=== PATIENT | female | born 1985 | race Caucasian/White ===

== ENCOUNTER 2024-07-24 00:52 | Emergency (ER) | payer OTHER, SELFPAY | END 2024-07-24 01:08 | LOC: EMR 00:52 | PROVIDERS: FAMILY PHYSICIAN Internal Medicine | DX: O26.893 Other specified pregnancy related conditions, third trimester (principal); O99.513 Diseases of the respiratory system complicating pregnancy, third trimester; Z3A.30 30 weeks gestation of pregnancy; R51.9 Headache, unspecified; R07.9 Chest pain, unspecified; J20.9 Acute bronchitis, unspecified; R03.0 Elevated blood-pressure reading, without diagnosis of hypertension | CPT/HCPCS: 99283; 93005 ==

== ENCOUNTER 2024-07-24 01:10 | Observation (INO) | payer OTHER, SELFPAY ==
[2024-07-24 01:13] VITALS: BMI 25.8
[2024-07-24 01:24] VITALS: BP 114/72
[2024-07-24] MEDS: TYLENOL 500 MG PO (01:52)
[2024-07-24] MEDS: LR 1000 IV (01:54)
[2024-07-24 02:08] LABS: Hematocrit 29.1 % (37.0-47.0); Hemoglobin 9.9 g/dL (12.0-16.0); Mean Corpuscular Hgb 31.1 pg (27.0-31.0); Mean Corpuscular Volume 91.5 fL (81.0-99.0); Platelet Count 369 10^3/uL (130-400); Red Blood Cell Count 3.18 10^6/uL (4.20-5.40); Red Cell Dist. Width 12.9 % (11.5-14.5); White Blood Cell Count 10.9 10^3/uL (4.8-10.8)
[2024-07-24 02:18] LABS: ALT (SGPT) 28 U/L (0-35); AST (SGOT) 27 U/L (14-36); Albumin 3.4 g/dl (3.5-5.0); Alkaline Phosphatase 106 U/L (38-126); Blood Urea Nitrogen 8 mg/dl (7-17); Calcium 8.9 mg/dl (8.4-10.2); Carbon Dioxide 19 mmol/L (22-30); Chloride 108 mmol/L (98-107); Estimated Creatinine Clearance 99 ml/min; Glucose 100 mg/dl (70-99); Potassium 4.1 mmol/L (3.5-5.1); Sodium 138 mmol/L (135-145); Total Bilirubin 0.1 mg/dl (0.2-1.3); Total Protein 6.4 g/dl (6.3-8.2); eGFR > 60.00
[2024-07-24 02:48] LABS: Protein/creatinine Ratio 2.9; Urine Protein 16 mg/dl
[2024-07-24 04:58] LABS: Urine Albumin Negative (Neg - Trace); Urine Bilirubin Negative (Negative); Urine Character Clear (Clear); Urine Color Straw; Urine Glucose Negative (Negative); Urine Ketone Negative (Negative); Urine Leukocyte Negative (Negative); Urine Nitrite Negative (Negative); Urine Occult Blood Negative (Negative); Urine Specific Gravity 1.005 (<1.030); Urine Urobilinogen Negative (Neg - 1+)
== END 2024-07-24 03:31 | disposition home or self-care (01) ==
LOC: LDRP 01:10
PROVIDERS: ADMITTING PHYSICIAN Student in an Organized Health Care Education/Training Program; FAMILY PHYSICIAN Internal Medicine
DX: O26.893 Other specified pregnancy related conditions, third trimester (principal); R51.9 Headache, unspecified; R05.9 Cough, unspecified; R07.81 Pleurodynia; R03.0 Elevated blood-pressure reading, without diagnosis of hypertension; O09.523 Supervision of elderly multigravida, third trimester; Z3A.29 29 weeks gestation of pregnancy; O09.43 Supervision of pregnancy with grand multiparity, third trimester; R07.9 Chest pain, unspecified; G47.09 Other insomnia; Z91.041 Radiographic dye allergy status
CPT/HCPCS: 80053; 81003; 82570; 84156; 85027; G0378

== ENCOUNTER 2024-07-24 03:23 | Emergency (ER) | payer OTHER, SELFPAY ==
[2024-07-24 03:25] VITALS: BP 108/82
[2024-07-24 03:45] VITALS: BP 112/73
[2024-07-24 03:48] VITALS: BMI 27.0
[2024-07-24 04:00] VITALS: BP 114/75
--- NOTE | 2024-07-24 04:47 | ED.GENMED ---
History of Present Illness
<SRUTHI Calderon - Last Filed: 07/24/24 06:16>
General
Chief Complaint: Chest Problem
Source: patient
Time Seen by Provider: 07/24/24 04:45
Nursing documentation reviewed up to this point in time: agreed with
History of Present Illness
History of Present Illness:
Pt is a 39 yo F who is 30 weeks and presents to the ED for chest pain. At 00:53 patient presented to the ED for chest pain and headache. Pt had an EKG in ED which showed tachycardia, then patient was sent to OB floor. Pt is now back in the
ED at 5:00am for further evaluation of chest pain. Pt states that last week she had bronchitis and has been coughing more recently. She explains that the pain is located on her left anterior chest and is worse when she presses on it. Pt states that
the pain does not radiate. Pt states that she received Tylenol around 2:00am and states that she feel much better. Pt states that her cough has been improving. She reports that she still coughs at times and the pain is worse when she coughs. Pt
denies shortness of breath, dizziness.
Review of Systems
<SRUTHI Calderon - Last Filed: 07/24/24 06:16>
Review of Systems
Allergies reviewed?: Yes
Constitutional: Reports no symptoms
Respiratory: Reports cough
Cardiac: Reports chest pain
ABD/GI: Reports no symptoms
Skin: Reports no symptoms
Phy Exam
<SRUTHI Calderon - Last Filed: 07/24/24 06:16>
General Physical Exam
General Presentation: well appearing and no apparent distress
General age: appears stated age
General Skin: warm
General Habitus: normal
General Mental: alert
General Hydration: appears well hydrated
Cardiovascular Exam
Cardiovascular Exam: regular rate/rhythm and no edema
Pulmonary Exam
Pulmonary Exam: lungs clear, no respiratory distress and other (tenderness to palpation of left middle anterior chest wall )
Course
<ST YumikoPA - Last Filed: 07/24/24 06:16>
Orders/Labs/Results
Orders:
Orders
07/24/24 04:11
Add On- LAB Urgent
Comments:: urine in lab
Tests Added?: Urinalysis reflex to culture
07/24/24 05:23
CR Chest - 2 Views Urgent
Comment:
Reason For Exam: cough, left anterior lower CP w cough
Vital Signs
Initial and Last Documented VS:
Initial Vital Signs
Temp Pulse Resp BP Pulse Ox
97.4 F 106 24 108/82 100
07/24/24 03:25 07/24/24 03:25 07/24/24 03:25 07/24/24 03:25 07/24/24 03:25
Last Documented Vital Signs
Temp Pulse Resp BP Pulse Ox
97.9 F 101 18 118/77 98
07/24/24 03:47 07/24/24 05:03 07/24/24 05:03 07/24/24 06:08 07/24/24 06:10
<Lisa Martel DO - Last Filed: 07/24/24 07:31>
Orders/Labs/Results
Orders:
Orders
07/24/24 04:11
Add On- LAB Urgent
Comments:: urine in lab
Tests Added?: Urinalysis reflex to culture
07/24/24 05:23
CR Chest - 2 Views Urgent
Comment:
Reason For Exam: cough, left anterior lower CP w cough
Vital Signs
Initial and Last Documented VS:
Initial Vital Signs
Temp Pulse Resp BP Pulse Ox
97.4 F 106 24 108/82 100
07/24/24 03:25 07/24/24 03:25 07/24/24 03:25 07/24/24 03:25 07/24/24 03:25
Last Documented Vital Signs
Temp Pulse Resp BP Pulse Ox
97.9 F 101 18 118/77 98
07/24/24 03:47 07/24/24 05:03 07/24/24 05:03 07/24/24 06:08 07/24/24 06:10
<SRUTHI Calderon - Last Filed: 07/24/24 06:16>
MDM/Problems Addressed
Differential Diagnosis Includes:
Costochondritis
<SRUTHI Calderon - Last Filed: 07/24/24 06:16>
*Critical Care Note
Total Time (30-74mins, 75-104mins- exclusive of procedures): Not Applicable
<Lisa Martel DO - Last Filed: 07/24/24 07:31>
*Pulse Oximetry
Patient hypoxic: no
*EKG
Interpreted by ED Provider?: Yes
Comparison EKG: no comparison EKG present
Heart Rate: 106
Rate: tachycardiac
Rhythm: sinus
Hamilton: normal axis
Interval: normal interval
QRS Pattern: normal QRS
Ischemia: no ischemia
ED Attending Note
<SRUTHI Calderon - Last Filed: 07/24/24 06:16>
-
Portions of this chart may have been created with voice recognition software.� Occasional wrong word or��sound alike� substitutions may have occurred due to the inherent limitations of voice recognition software.
<Lisa Martel DO - Last Filed: 07/24/24 07:31>
ED Attending Note
Patient seen and examined by attending physician: Yes
I performed the substantive portion of visit, reviewed & personally made and approve the management plan that is documented in note by myself or PHILIP.: Yes
ED Attending Note:
This is a 39-year-old woman 7 para 5, currently 30 weeks . 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 Thus far uneventful , no complications.
She does however note URI symptoms that began over a week ago. Evaluated at urgent care Tuesday week ago, July 14 where she was diagnosed with bronchitis. COVID testing was negative. Several family members with similar URI symptoms and some
diagnosed with pneumonia. She was prescribed antibiotic which she did not take. URI has resolved. She does continue with mild intermittent dry cough and does note that she had significant cough throughout this past week with onset of left
anterior lower chest pain that is worse with cough, worse with deep breath. Left anterior lower chest pain at 1 point was radiating around to her left back but this has since resolved. She denies shortness of breath. She initially presented to
the ED with left anterior chest discomfort and also noted to have elevated blood pressure.
Initially presented to this ED and OB was notified.
EKG unremarkable, normal sinus rhythm, normal axis, no acute ST-T wave abnormalities. OB notified and patient was initially taken directly to labor and delivery floor for further evaluation. She was given Tylenol for pain with normalization of
blood pressure. Labs were unremarkable. Urinalysis showed minimally elevated protein and she was recommended to follow-up with her primary personal computer network analyst this week for recheck.
Prior to tonight she has had no episodes of elevated blood pressure.
Since receiving Tylenol she admits that left anterior lower chest discomfort is markedly improved. She continues to deny shortness of breath. No palpitations. No nausea nor vomiting. No flank pain. No dysuria and urgency and or hematuria.
GENERAL: 39-year-old woman appears her stated age, bright and alert, pleasant, appears in no acute distress.
EYE: pupils equal and reactive. anicteric
NECK: Supple, nontender, no meningismus, no significant adenopathy.
ENT: posterior pharynx is clear, oral mucosa is moist. TM clear b/l, nares patent.
CARDIAC: Regular rate and rhythm. no murmur. Moderate pinpoint tenderness left anterior intercostal region between ribs 5 and 6. Palpation seems to exactly reproduce patient's pain complaint. There is no crepitus nor palpable bony abnormality.
LUNGS: Clear breath sounds bilaterally, no acute respiratory distress, no wheezes/rales/rhonchi
ABDOMEN: Gravid, soft, nondistended, without focal tenderness, no r/g, no cvat. normoactive BS.
NEUROLOGICAL: Alert and oriented x3, no focal neuro deficits. Gait is steady.
SKIN: Warm and dry, normal color, skin intact. No rash.
MUSCULOSKELETAL: No C/C/E. peripheral pulses are full and equal b/l. No palpable tenderness.
PSYCH: Normal and appropriate interaction.
Patient presents with focal reproducible left anterior distal chest pain that is worse with cough, worse with deep breath but denies shortness of breath.
Recent URI a week and a half ago with significant coughing has significantly improved/near resolved. Previous COVID testing were negative.
I suspect intercostal muscle strain but must consider focal pneumonia, pleurisy, as patient is must also consider PE.
Blood pressure normal.
Nothing on exam to suggest preeclampsia.
We did discuss CT of the chest which patient declines. No prior history of thromboembolism and is reassuring that she has had no shortness of breath and on exam clearly has reproducible pinpoint intercostal tenderness to palpation.
Lungs are clear to auscultation but may have an occult pneumonia thus recommend chest x-ray which she is agreeable to go.
We did discuss that the only way to completely rule out PE is with CT scan which she continues to decline.
06:10
Delay in chest x-ray due to technical instructor off the floor for morning portables/ICU.
Patient elects to forego chest x-ray, requesting to go home and plans to follow-up with her PCP as well as COUNTERINTELLIGENCE AGENT.
Recommend she take Tylenol as needed for pain.
May also trial topical lidocaine patch, heating patch versus heating pad.
Strict return precautions discussed.
Discharge Plan
Departure
Patient Disposition: Home (Routine Discharge)
Date of Disposition: 07/24/24
Time of Disposition: 06:10
Patient with high blood pressure during this ER visit?: No
Condition: Good
Discharge Problem:
left anterior intercostal muscle strain, resolving bronchitis, 30 weeks gestation of
Instructions: Rib injury in adults, Chest Pain PCP Follow Up
Prescriptions:
No Action
No Current Medications
0
Referrals:
Nik Ribeiro MD [Family Provider] - Call in 1-3 days for appt
Activity Restrictions/Additional Instructions:
Follow-up with your personal computer network analyst this week for recheck.
Continue Tylenol every 4 hours as needed for pain. Along with this you can trial topical lidocaine patch versus topical heat patch.
Interventions
Interventions:
*Risk Screen - Suicide Last Done: 07/24/24 03:25
*General Assessment Last Done: 07/24/24 03:50
*Neglect/Abuse Screening Last Done: 07/24/24 03:25
ED- Fall Risk Assessment Last Done: 07/24/24 03:53
*ED COVID-19 Vaccine History Last Done: 07/24/24 03:50
*Nursing Disposition Last Done: 07/24/24 06:15
ED- Cardiac Assessment Last Done: 07/24/24 03:53
ED- Pulmonary Assessment Last Done: 07/24/24 03:53
Discharge Date and Time
Discharge Date/Time: 07/24/24 06:15
Print Language: YI
[2024-07-24 05:00] VITALS: BP 116/67
[2024-07-24 06:08] VITALS: BP 118/77
== END 2024-07-24 06:15 | disposition home or self-care (01) ==
LOC: EMR 03:23
PROVIDERS: EMERGENCY PHYSICIAN Emergency Medicine; FAMILY PHYSICIAN Internal Medicine
DX: O99.513 Diseases of the respiratory system complicating pregnancy, third trimester (principal); S29.011A Strain of muscle and tendon of front wall of thorax, initial encounter; Z3A.30 30 weeks gestation of pregnancy; X58.XXXA Exposure to other specified factors, initial encounter; R51.9 Headache, unspecified; R00.0 Tachycardia, unspecified; R07.89 Other chest pain; J20.9 Acute bronchitis, unspecified; Z86.16 Personal history of COVID-19
CPT/HCPCS: 99283